=== PATIENT | female | born 1965 | race Caucasian/White ===

== ENCOUNTER 2023-11-16 02:02 | Outpatient (CLI) | payer MEDICARE, MEDICAID ==
[2023-11-16] VITALS (21 sets, daily range): BP systolic 125–157; BP diastolic 69–100; PULSE 91–122
[~2023-11-16 02:02] MED LIST: AMLO10TA PO; AMLO5TAB PO; ASPI-611 PO; CALC0.2536 PO; EPOE10004 SQ; FURO40TA4 PO; GABA-530 PO; HYDR25TA90 PO; LEVO500T2 PO; METR-159 PO; MONT-47 PO; MULT-620 PO; MYCO200S2 PO; NORCO10T PO; OMEP-84 PO; ONDA4TAB6 PO; PRED2.5T4 PO; SIMV-42 PO; SODI650T29 PO; TACR0.5C20 PO; VALG450T13 PO; [UNRECOGNIZED DRUG - CODE] PO
== END 2023-11-16 23:59 | disposition home or self-care (01) ==
LOC: CARD DIAG 02:02
PROVIDERS: ATTEND Internal Medicine Interventional Cardiology
DX: R55 Syncope and collapse (principal)
CPT/HCPCS: 93660

== ENCOUNTER 2024-08-06 10:57 | Day surgery (SDC) | payer MEDICARE, MEDICAID ==
[2024-08-02 13:11] LABS: BASOPHILS % (AUTO) 0.8 % (0-1); EOSINOPHILS # (AUTO) 0.1 X10'3 (0-0.9); EOSINOPHILS % (AUTO) 1.8 % (0-6); HEMOGLOBIN 11.9 g/dl (12.0-16.0); LYMPHOCYTES # (AUTO) 1.6 X10'3 (1.1-4.8); LYMPHOCYTES % (AUTO) 34.1 % (21-51); MEAN CORPUSCULAR HEMOGLOBIN 30.9 PG (27.0-31.0); MEAN CORPUSCULAR VOLUME 90.9 FL (78-98); MEAN PLATELET VOLUME 7.5 FL (7.4-10.4); MONOCYTES # (AUTO) 0.4 X10'3 (0-0.9); MONOCYTES % (AUTO) 8.9 % (2-12); NEUTROPHILS # (AUTO) 2.6 X10'3 (1.8-7.7); NEUTROPHILS % (AUTO) 54.4 % (42-75); PLATELET COUNT 221 X10'3 (140-440); RED BLOOD COUNT 3.85 X10'6 (4.20-5.60); RED CELL DISTRIBUTION WIDTH 15.7 % (11.5-14.5); WHITE BLOOD COUNT 4.8 X10'3 (4.5-11.0)
[2024-08-02 13:17] LABS: APTT 28 SECONDS (22-32); INR 1.1 INR; PROTHROMBIN TIME 11.4 SECONDS (9.0-12.0)
[2024-08-02 13:18] LABS: ALBUMIN 3.9 G/DL (3.4-5.0); ANION GAP 10 (8-16); BLOOD UREA NITROGEN 20 MG/DL (7-18); BUN/CREATININE RATIO 8.7 (10.0-20.0); CALCIUM 9.4 MG/DL (8.5-10.1); CHLORIDE 105 MMOL/L (99-107); CHOL/HDL RATIO 2.3 (0.00-4.99); CHOLESTEROL 177 MG/DL (0-200); GLUCOSE 92 MG/DL (70-104); HDL CHOLESTEROL 76 MG/DL (35-60); LDL CHOLESTEROL 79 MG/DL (50-100); POTASSIUM 3.2 MMOL/L (3.5-5.1); SODIUM 143 MMOL/L (135-145); TOTAL CARBON DIOXIDE 28.1 MMOL/L (24-32); TRIGLYCERIDES 148 MG/DL (20-135); eGFR 22 ML/MIN
[~2024-08-06] VITALS: Ht 172.7 cm; Wt 96.3 kg
[2024-08-06] VITALS (8 sets, daily range): BP systolic 145–167; BP diastolic 85–96; PULSE 70–80; RESP 13–18; TEMP 98; O2SAT 94–98
[2024-08-06] MEDS ORDERED: POTA-207 PO (12:21)
[2024-08-06] MEDS ORDERED: BELA250V (12:21)
[2024-08-06] MEDS ORDERED: APIX5TAB3 PO (12:25)
[2024-08-06] MEDS ORDERED: FLUT16SP26 (12:25)
[2024-08-06] MEDS ORDERED: CINA30TA7 (12:25)
[2024-08-06] MEDS ORDERED: DILT120T3 PO (12:25)
[2024-08-06] MEDS ORDERED: OLOP5DRO26 LEFTEYE (12:29)
[2024-08-06] MEDS ORDERED: ESTR42.510 (12:29)
[2024-08-06] MEDS ORDERED: OLOP5DRO26 RIGHTEYE (12:29)
[2024-08-06] MEDS ORDERED: ALBU8HFA PO (12:29)
[2024-08-06] MEDS ORDERED: CETI10TA14 PO (12:39)
[2024-08-06] MEDS ORDERED: DOXA-8 PO (12:39)
[2024-08-06] MEDS ORDERED: FURO80TA87 PO (12:39)
[2024-08-06] MEDS ORDERED: FURO40TA4 PO (12:39)
[2024-08-06] MEDS ORDERED: verapamil 2.5 mg/ml inj IV ONE (12:54)
[2024-08-06] MEDS ORDERED: midazolam 1 mg/ML 2ml injection ONE ×2 (12:54→13:38)
[2024-08-06] MEDS ORDERED: LIDOcaine 1% (10mg/ml) 2ml vial ONE (12:54)
[2024-08-06] MEDS ORDERED: heparin 1,000unit/ml 10ml vial 10 ML ONE (12:54)
[2024-08-06] MEDS ORDERED: fentaNYL/PF 50MCG/1 ML 2ML syringe ONE (12:54)
[2024-08-06] MEDS ORDERED: iohexol 350MG/ML 100ml bottle IV ONE (12:55)
[2024-08-06] MEDS ORDERED: nitroGLYCERIN 500mcg/5mL D5W 5 ML IV ONE (12:55)
[2024-08-06] MEDS: LORazepam 0.5 MG tablet PO PRN (13:07)
[2024-08-06] MEDS: diphenhydrAMINE 25mg capsule PO PRN (13:07)
[2024-08-06] MEDS: normal saline 1,000 ML IV SCH (13:08)
[2024-08-06] MEDS ORDERED: LIDOcaine 1% 30ml preserv. free vial ONE (13:42)
[2024-08-06] MEDS ORDERED: HYDROcodone/acetaminophen 5mg/325mg tablet PO PRN (14:55)
[2024-08-06] MEDS ORDERED: HYDROcodone/acetaminophen 10/325mg tab PO PRN (14:55)
[2024-08-07 08:15] LABS: ISTAT HGB MIX 10.5 g/dl (12.0-16.0); ISTAT Hct MIX 31 %PCV (35-45); ISTAT O2 SATURATION MIX VENOUS 66 % (60-80); ISTAT SOURCE BLNK
[2024-08-07 08:16] LABS: ISTAT HGB ART 10.2 g/dl (12.0-16.0); ISTAT Hct ART 30 %PCV (35-45); ISTAT O2 SATURATION ARTERIAL 95 % (95-98); ISTAT SOURCE BLNK
== END 2024-08-06 16:45 | disposition home or self-care (01) ==
LOC: SSTAY O 10:57
PROVIDERS: ATTEND Internal Medicine Interventional Cardiology
DX: I35.0 Nonrheumatic aortic (valve) stenosis (principal); I25.10 Atherosclerotic heart disease of native coronary artery without angina pectoris; R94.31 Abnormal electrocardiogram [ECG] [EKG]; I12.0 Hypertensive chronic kidney disease with stage 5 chronic kidney disease or end stage renal disease; N18.6 End stage renal disease; E78.00 Pure hypercholesterolemia, unspecified; I48.91 Unspecified atrial fibrillation; K21.9 Gastro-esophageal reflux disease without esophagitis; G47.33 Obstructive sleep apnea (adult) (pediatric); I27.20 Pulmonary hypertension, unspecified; Z86.718 Personal history of other venous thrombosis and embolism; Z79.01 Long term (current) use of anticoagulants; Z79.2 Long term (current) use of antibiotics; Z79.899 Other long term (current) drug therapy; Z94.0 Kidney transplant status
CPT/HCPCS: 36415; 80048; 80061; 82803; 85014; 85025; 85610; 85730; 93005; 93460; 99152; A6258; C1751; C1760; C1769; C1894; J1644; J2003; J2250; J3010; J3490; J7030; Q0163; Q9967; Z7610; 76937

== ENCOUNTER 2024-12-13 22:25 | Emergency (ER) | payer MEDICARE, MEDICAID ==
[~2024-12-13] VITALS: Ht 177.8 cm; Wt 85.9 kg
[~2024-12-13 22:25] MED LIST changes: +ALBU8HFA PO; -AMLO10TA PO; -AMLO5TAB PO; +APIX5TAB3 PO; -ASPI-611 PO; +BELA250V; -CALC0.2536 PO; +CETI10TA14 PO; +CINA30TA7; +DILT120T3 PO; +DOXA-8 PO; -EPOE10004 SQ; +ESTR42.510; +FLUT16SP26; +FURO80TA87 PO; -HYDR25TA90 PO; -LEVO500T2 PO; -METR-159 PO; -NORCO10T PO; +OLOP5DRO26 LEFTEYE; +OLOP5DRO26 RIGHTEYE; -OMEP-84 PO; -ONDA4TAB6 PO; +POTA-207 PO; -TACR0.5C20 PO; -VALG450T13 PO; -[UNRECOGNIZED DRUG - CODE] PO
[2024-12-13 22:26] VITALS: TEMP 97.8
--- NOTE | 2024-12-13 22:33 | Physician Documentation ---
History of Present Illness ~ Chief Complaint: Ankle pain Stated Complaint: ANKLE INJURY Time Seen by MD: 22:30 Primary Medical Doctor: Juan Carlos; [facility] HPI 59-year-old female, on Eliquis, who presents with a fall and isolated right an kle and foot pain She tells me that she was walking, tripped over her dog, and had a twisting injury to her right ankle. She reports severe pain in her ankle and mid foot. She denies any head or neck injury. No other pain or injury from the fall. She does not take any pain medication. She arrives by EMS, who confirms isolated right ankle injury, and no pain medications were given during transport. Tetanus witin 5 years: Yes Medication Reconciliation Allergies: Coded Allergies: No Known Allergies (Unverified , 09/25/12) Scheduled Apixaban (Eliquis), 1 TAB PO BID, (Reported) Cetirizine HCl (Cetirizine HCl), 1 TAB PO DAILY, (Reported) Diltiazem HCl (Diltiazem HCl), 2 TAB PO BID, (Reported) Doxazosin Mesylate (Cardura), 1 TAB PO DAILY, (Reported) Furosemide (Furosemide), 1 TAB PO PM, (Reported) Furosemide* (Lasix*), 1 TAB PO DAILY, (Reported) Gabapentin (Gabapentin), 200 MG PO HS, (Reported) Montelukast Sodium (Singulair), 1 TABLET PO HS, (Reported) Multivitamins (Multivitamins), 1 TABLET PO DAILY, (Reported) Mycophenolate Mofetil (Mycophenolate Mofetil), 0.65 ML PO BID, (Reported) Olopatadine HCl (Olopatadine HCl), 1 DROP RIGHTEYE Q12H, (Reported) Olopatadine HCl (Olopatadine HCl), 1 DROP LEFTEYE Q12H, (Reported) Potassium Chloride* (K-Dur*), 1 TAB PO DAILY, (Reported) Prednisone (Prednisone), 2 TABLET PO DAILY, (Reported) Simvastatin* (Zocor*), 40 MG PO HS, (Reported) Sodium Bicarbonate (Antacid), 2 TAB PO DAILY, (Reported) Scheduled PRN Oxycodone Hcl IR* (Oxycodone IR*), 1 TAB PO Q6H PRN for moderate to severe pain albuterol inhaler (Pro-Air Inhaler), 1-2 PUFFS PO Q4H PRN for shortness of breath, (Reported) Miscellaneous Medications Belatacept (Nulojix), (Reported) Cinacalcet HCl (Cinacalcet HCl), (Reported) Estradiol (Estradiol), (Reported) Fluticasone Propionate (Fluticasone Propionate), (Reported) Past Medical History Past Medical History: High Cholesterol, Hypertension, Renal Disease Past Surgical History: , tubal ligation, other Alcohol Use: None Drug Use: none Lives In: Home Review of Systems Neurological: Denies: headache Musculoskeletal: Reports: joint pain, joint swelling Physical Exam Vital Signs: Temperature: 97.8, Source: Oral, Heart Rate: 101, Respiratory Rate: 17, BP: 164/106, Pulse Oximetry: 94, Weight: 85.910 Oxygen Flow Rate: 0 Physical Exam General: Pleasant but uncomfortable appearing middle-aged female HEENT: Atraumatic, oropharynx is moist Neck: No midline tenderness, full range of motion without pain Heart: Mild tachycardia, normal-appearing perfusion to the feet Lungs: normal work of breathing, normal oxygen saturation on room air Extremities: Warm and well-perfused Right lower extremity: The patient presents in a splint by EMS. On exam she has significant tenderness to palpation of the medial and lateral ankles well as the mid foot. No tenderness on palpation of the proximal lower leg or fibula, no overlying abrasions or cuts. Neuro: Alert and oriented, no focal deficits Psychiatric: Appears uncomfortable but is cooperative with exam Progress Results/Orders Results/Orders Orders - KORINA REINA MD Ankle, Complete(3vw Min) (12/13/24 22:30) Foot, Complete (3vw Min) (12/13/24 22:30) Ct Lower Extremity (12/14/24 00:10) Completed Orders - KORINA REINA MD Ankle, Complete(3vw Min) (12/13/24 22:30) Foot, Complete (3vw Min) (12/13/24 22:30) Oxycodone Immed Release Tablet (Oxy Ir T (12/13/24 22:30) Oxycodone Immed Release Tablet (Oxy Ir T (12/14/24 00:00) Ct Lower Extremity (12/14/24 00:10) Medications Received in ER Medications (Trade) Dose Ordered Sig/Sydni Route PRN Reason Start Time Stop Time Status Last Admin Dose Admin (OXY IR tablet) 5 mg ONCE STAT PO 12/13/24 22:30 12/13/24 22:32 DC 12/13/24 22:50 5 MG (OXY IR tablet) 5 mg ONCE ONCE PO 12/14/24 00:00 12/14/24 00:01 DC 12/14/24 00:09 5 MG Vital Signs 12/13/24 12/13/24 12/13/24 12/13/24 22:26 22:50 22:51 22:51 Temp 97.8 Pulse 101 97 Resp 17 16 16 B/P (MAP) 164/106 166/106 (126) Pulse Ox 94 100 O2 Flow Rate 0 0 12/14/24 12/14/24 12/14/24 12/14/24 00:08 00:09 00:42 00:44 Pulse 89 Resp 16 16 16 16 B/P (MAP) 156/95 (115) Pulse Ox 100 O2 Flow Rate 0 12/14/24 03:00 Pulse 90 Resp 18 B/P (MAP) 155/95 Pulse Ox 100 EKG/XRAY/CT/US/VASC/MRI Bone/Soft Tissue X-Ray (Ext.) : Additional Comment I personally reviewed the x-ray, and it shows: No obvious fracture to the ankle or foot, no dislocation, significant soft tissue swelling CT : Impression I personally reviewed the CT scan, and this shows no obvious fracture or dislocation, there is soft tissue swelling Medical Decision Making General Diff Dx:Considerations: Include: Contusion, Fracture, Hematoma, Sprain Additional Comment The patient presents with isolated ankle and foot pain after a twisting injury. Initially she did have severe pain, and was given oral pain medication. X-ray does not show an obvious fracture. We then attempted to walker, but she was unable to walk with crutches due to severe pain. We then obtained a CT scan to evaluate for occult fracture, and this also does not show a fracture. I suspect that this is a very bad sprain or ligamentous injury. She will be given a brace, crutches and pain medication. She will follow-up for re-evaluation if her symptoms do not improve, to discuss further imaging or evaluation. Departure Time of Disposition: 00:00 Disposition: HOME / SELF CARE / HOMELESS Impression: Primary Impression: Sprain of ankle Condition: Improved Discharge Instructions: Ankle Sprain Referrals: NO PRIMARY CARE PROVIDER (PCP) Prescriptions Oxycodone Hcl IR* (Oxycodone IR*) 5 Mg Tablet 1 TAB PO Q6H PRN for moderate to severe pain for 4 Days, #16 TAB Prov: KORINA REINA MD 12/14/24 Comments The x-ray of your ankle and foot did not show any broken bones. There is a lot of soft tissue swelling, which likely means that this is a bad sprain or ligament injury. The CT scan does not show a broken bone either. This makes it very likely that this is a bad sprain. The treatment for now asymptomatic including wearing a brace, and using crutches you do not have to walk on the ankle. You can take pain medication as prescribed. Please keep your leg elevated, you can use ice, and anti- inflammatories like Tylenol. If you continued to have significant pain in about 1 week, you should have re-evaluation including possibly an MRI to look at the ligaments. Education Educated: Patient Educated regarding: diagnosis, treatment, need for follow up Signature Scribe Signature: na Attestation: KORIAN Muniz MD Dec 13, 2024 22:33
[2024-12-13] MEDS: oxyCODONE IR 5mg (immed. release) tablet PO STA (22:50)
--- NOTE | 2024-12-13 23:13 | RADIOLOGY REPORT ---
DI ANKLE, COMPLETE(3VW MIN), INDICATION: ANKLE PAIN TECHNICAL DATA:Frontal , oblique and lateral views were obtained of the left ankle. COMPARISON: None No acute fracture or dislocation. Large osteophyte along the anterior surface of the talus most like ly indicative of an osteophyte or chronic injury. Calcifications. Soft tissue edema predominantly ad jacent to the medial malleolus.
[2024-12-14] MEDS ORDERED: OXYC-658 PO (00:02)
--- NOTE | 2024-12-14 00:04 | RADIOLOGY REPORT ---
Clinical History FOOT PAIN Comparison None Technique: Three radiographs were submitted for review. Without Contrast BANDAR WILSON, [id number] FINDINGS:/IMPRESSION: Prominent arterial calcifications. Soft tissue swelling in the forefoot. No acute fracture seen. This report was electronically signed by Nito Mcdowell MD on 12/14/2024 12:00:56 AM.
[2024-12-14] MEDS: oxyCODONE IR 5mg (immed. release) tablet PO ONE (00:09)
--- NOTE | 2024-12-14 02:16 | RADIOLOGY REPORT ---
Clinical History right ankle and foot pain, eval fx Comparison ANKLE XRAY on 12/13/2024, 3 images. Technique: All CT scans at this medical facility are performed using dose modulation techniques as appropriate t o a performed exam including the following: Automated exposure control was utilized; adjustment of th e mA and/or kV according to patient size; and use of iterative reconstruction technique. All CT studies are reported to the Dose Index Registry of the [employer]. Without Contrast Radiation Dose: CTDI (mGy): 3.48; DLP (mGy-cm): 196.24 BANDAR WILSON, [id number] FINDINGS:/IMPRESSION: Scattered arterial calcifications. Diffuse inflammatory changes in the subcutaneous tissues. No acute fracture seen. This report was electronically signed by Nito Mcdowell MD on 12/14/2024 2:13:18 AM.
[2024-12-14 03:00] VITALS: BP 155/95; PULSE 90; RESP 18; O2SAT 100
== END 2024-12-14 03:01 | disposition home or self-care (01) ==
LOC: ER 22:26
DX: S93.401A Sprain of unspecified ligament of right ankle, initial encounter (principal); I10 Essential (primary) hypertension; E78.00 Pure hypercholesterolemia, unspecified; Z98.51 Tubal ligation status; X50.1XXA Overexertion from prolonged static or awkward postures, initial encounter; Y93.01 Activity, walking, marching and hiking; Y92.89 Other specified places as the place of occurrence of the external cause; Y99.8 Other external cause status
CPT/HCPCS: 29540; 73610; 73630; 73700; 99284